=== PATIENT | male | born 1980 | race Caucasian/White ===

== ENCOUNTER 2021-03-24 17:41 | Emergency (ER) | payer BC ==
[2021-03-24 19:15] LABS: HEMOGLOBIN 16.6 gm/dl (14.0-17.5); RED BLOOD COUNT 5.14 M/UL (4.20-5.50)
[2021-03-24 19:36] LABS: BUN/CREATININE RATIO 21 (0-10)
[2021-03-24] MEDS ORDERED: LOMOTIL 2.5-0.1 EACH PO (21:27)
[2021-03-24] MEDS ORDERED: FLORASTOR250 MG PO (21:27)
[2021-03-24] MEDS ORDERED: ZOFRAN ODT 4 MG4 MG SL (21:27)
[2021-03-24] MEDS ORDERED: BENTYL 20MG TAB20 MG PO (21:27)
== END 2021-03-24 21:36 | disposition home or self-care (01) ==
LOC: ER1 17:41
PROVIDERS: Emergency Medicine
DX: R10.84 Generalized abdominal pain (principal); R11.2 Nausea with vomiting, unspecified; R19.7 Diarrhea, unspecified; I10 Essential (primary) hypertension; Z20.822 Contact with and (suspected) exposure to COVID-19; E11.9 Type 2 diabetes mellitus without complications
CPT/HCPCS: 80053; 81001; 83605; 83690; 85025; 87040; 96374; 96375; 99284; J2270; J2405; J7030; U0002

== ENCOUNTER → 2021-07-06 | Outpatient (CLI) | payer BC ==
[~2021-07-06] MED LIST: BENTYL 20MG TAB20 MG PO; FLORASTOR250 MG PO; LOMOTIL 2.5-0.1 EACH PO; ZOFRAN ODT 4 MG4 MG SL
== END ==
LOC: US 07:38
DX: R10.11 Right upper quadrant pain (principal); R07.89 Other chest pain
CPT/HCPCS: 71046; 71100; 76705